=== PATIENT | male | born 1985 | race Hispanic/Latino ===

== ENCOUNTER 2021-06-22 00:02 | Emergency (ER) | payer OTHER, SELFPAY ==
[2021-06-22] VITALS (9 sets, daily range): BP systolic 113–149; BP diastolic 49–86; PULSE 53–85; RESP 14–22; TEMP 36.2; O2SAT 94–100
--- NOTE | ~2021-06-22 | CT_ITS ---
EXAMINATION: CT brain wo con DATE: 06/22/2021 03:13 INDICATION: Confusion. Weakness. TECHNIQUE: Computed tomography (CT) of the head was performed without intravenous contrast. The mA wa s adjusted according to patient size. Iterative reconstruction technique was employed. The dose-lengt h product was 605.33 mGy-cm. COMPARISON: None FINDINGS: There is no intracranial hemorrhage, acute infarction, or abnormal intracranial mass lesion . The ventricles are normal in size. The orbits are normal. There is mild mucosal thickening in the p aranasal sinuses. The mastoid air cells are normal. IMPRESSION: 1. Normal brain. Reviewed, dictated and finalized at location A. IMPRESSION: 1. Normal brain.
--- NOTE | 2021-06-22 00:07 | ECG_ITS ---
Measurements Intervals [place] Rate: 72 P: 61 IN: 162 QRS: 4 QRSD: 105 T: 53 QT: 345 QTc: 378 Interpretive Statements SINUS RHYTHM WITH SINUS ARRHYTHMIA NORMAL ECG NO PREVIOUS ECG AVAILABLE FOR COMPARISON Electronically Signed On 06-22-2021 11:19:25 CDT by Roberto Weston M.D.
--- NOTE | 2021-06-22 01:11 | ED.GENADULT ---
HPI - General Adult General Chief complaint: Unspecified <PRISCILLA Albert Last Filed: 06/22/21 04:01> Stated complaint: body pain, left arm pain <PRISCILLA Albert Last Filed: 06/22/21 04:01> Time Seen by Provider: 06/22/21 00:55 <PRISCILLA Albert Last Filed: 06/22/21 04:01> History of Present Illness HPI narrative: 35-year-old male previously healthy here for evaluation of weakness and pain in his left arm and bilateral lower extremities for the past 2 days. Patient states it feels like I worked out for 2 hours but denies physically exerting himself recently. The pain initially started in his left arm yesterday but then has gradually developed in his bilateral legs today. Reports difficulty with [id number] in his left hand today, which is why he presented to the emergency department. He does admit to drinking 4 glasses of wine tonight. Denies history of similar in the past. He was in his usual state of health until 2 days ago, and denies preceding illness. Denies urinary changes, fevers, cough, sick contacts, nausea, vomiting, chest pain, shortness of breath. No known tick exposure. <PRISCILLA Albert Last Filed: 06/22/21 04:01> Related Data Home medications: Home Medications Medication Instructions Recorded Confirmed albuterol sulfate INHALATION 06/22/21 cetirizine mg 06/22/21 fluticasone propionate INTRANASAL 06/22/21 naproxen 06/22/21 <PRISCILLA Albert Last Filed: 06/22/21 04:01> Allergies/adverse reactions: Allergies Allergy/AdvReac Type Severity Reaction Status Date / Time No Known Allergies Allergy Unverified 12/01/12 09:56 <PRISCILLA Albert Last Filed: 06/22/21 04:01> Review of Systems Review of Systems: Gen: Denies fevers Eyes: Denies eye pain or visual change ENT: Denies congestion Respiratory: Denies shortness of breath or cough CV: Denies chest pain or palpitations GI: Denies abdominal pain nausea, emesis or diarrhea : denies dark-colored urine, burning, urgency, frequency or hematuria Musculoskeletal: Reports muscle pain. Denies back pain Neuro: Reports weakness. denies numbness, tingling Skin: Denies rash Except as documented, all other systems reviewed and negative <Jennifer Lovett PA-C - Last Filed: 06/22/21 04:01> Exam Narrative: APPEARANCE: Anxious appearing. Head: normocephalic and atraumatic. EYES: PERRLA/EOMI, conjunctivae clear NOSE: No nasal drainage EARS: External ear normal in appearance THROAT: Oropharynx is clear. Mucous membranes are moist. NECK: Supple. No adenopathy, no masses. RESPIRATORY: Airway patent, respirations nonlabored. Clear to auscultation bilaterally, no rales, rhonchi, wheezing. CARDIOVASCULAR: 2+ radial pulses bilaterally. Regular rate and rhythm without murmurs, rubs, or gallops. ABDOMINAL: Normoactive bowel sounds. Soft, nontender, nondistended. No rebound tenderness or guarding. MUSCULOSKELETAL: Extremities are warm and well-perfused. Moves all extremities well. No edema. NEURO: 2+ DTRs in the patellas laterally. Patient has equal strength in upper extremities and lower extremities. Normal speech. Cranial nerves II through XII intact. Normal gait. SKIN: Skin is warm and dry. No rashes. PSYCHIATRIC: Flat affect <Jennifer Lovett PA-C - Last Filed: 06/22/21 04:01> Course SANITATION TECHNICIAN/PA Physician Supervision For this patient encounter, I reviewed the SANITATION TECHNICIAN or PA documentation, treatment plan, and medical decision making; and I had [id number] time with this patient. Patient CPK is mildly elevated, patient not in rhabdo, UA WNL. Patient does admit to working out to exertion. Patient denied any use of drugs but did test positive for cocaine. When confronted the patient admits to cocaine use recently. Patient was updated on the results of his work-up. Encouraged to have close follow-up with his primary care physician. <Ibrahima Simmons
--- NOTE | 2021-06-22 01:22 | PC.NURSE ---
Pt noted to have an episode lasting 5-10 seconds of unresponsiveness and muscle spasms in his shoulders. Pt became alert after 10 seconds but was noted to be confused. Pt heart rate on monitor during episode was in the high 40's. PA made aware. No new orders at this time. Pt now alert and oriented x 4
[2021-06-22 01:26] LABS: Basophils Absolute Auto 0.1 K/mm3 (0.0-0.1); Basophils Percent Auto 0.9 % (0.2-1.2); Eosinophils Absolute Auto 0.3 K/mm3 (0-0.3); Eosinophils Percent Auto 3.9 % (0-4.4); Hematocrit 45.7 % (42.0-52.0); Hemoglobin 15.5 g/dL (14.0-18.0); Immature Granulocyte Absolute 0.01 K/mm3 (0.00-0.031); Immature Granulocyte Percent A 0.1 % (0-0.5); Lymphocytes Percent Auto 45.2 % (18.3-44.2); Mean Corpuscular HGB Conc 33.9 g/dl (32-36); Mean Corpuscular Volume 88.4 fl (80-100); Mean Platelet Volume 11.6 fl (7.4-10.4); Monocytes Absolute Auto 0.7 K/mm3 (0.1-0.6); Monocytes Percent Auto 9.6 % (2.6-8.5); Neutrophils Absolute Auto 2.8 K/mm3 (1.3-6.7); Neutrophils Percent Auto 40.3 % (45.5-73.1); Platelet Count Result 247 k/mm3 (150-375); Red Blood Count 5.17 M/mm3 (4.6-6.20); Red Cell Distribution Width 12.5 % (11.5-14.5); White Blood Count 6.9 K/mm3 (4.5-10.0)
[2021-06-22 01:38] LABS: Alanine Aminotransferase 80 U/L (4-50); Albumin Level 4.9 g/dL (3.5-5.1); Alkaline Phosphatase 99 U/L (38-126); Anion Gap 10 mmol/L (8-16); Aspartate Amino Transferase 53 U/L (17-59); Bilirubin,Total 0.4 mg/dL (0.2-1.3); Blood Urea Nitrogen 17 mg/dL (9-20); Calcium 8.9 mg/dL (8.4-10.2); Carbon Dioxide 25 mmol/L (22-30); Chloride 104 mmol/L (98-107); Creatine Kinase 331 U/L (55-170); Estimated CRCL calculation 157 ml/min; Estimated Glomerular Filt Rate > 60; Glucose 100 mg/dL (65-110); Potassium 4.2 mmol/L (3.4-5.0); Sodium 139 mmol/L (137-145)
[2021-06-22] MEDS: SODIUM CHLORIDE 0.9% IV 1,000 ML 999 ML IV CONT (02:15)
[2021-06-22] MEDS: ACETAMINOPHEN 500 MG TABLET 1000 MG PO (03:25)
[2021-06-22 03:53] LABS: Appearance Urine Clear (Clear); Bilirubin Urine Negative (Negative); Blood Urine Negative (Negative); Color Urine Yellow (Yellow); Glucose Urine UA Negative (Negative); Ketones Urine Negative (Negative); Leukocyte Esterase Ur Negative LEU/UL (Negative); Nitrate Urine Negative (Negative); Protein Urine Negative (Negative); Specific Grav Ur 1.025 (1.001-1.035); Urobilinogen Urine 0.2 mg/dL (<2.0); pH Urine 6.5 (5.0-9.0)
[2021-06-22 03:56] LABS: Mucus Urine Rare /lpf; RBC Urine 0-2 /hpf (0-2); WBC Urine 0-3 /hpf
[2021-06-22 04:00] LABS: Influenza A QL RT-PCR Negative (Negative); Influenza B QL RT-PCR Negative (Negative)
[2021-06-22 04:02] LABS: Add Urine Microscopic? YES
[2021-06-22 04:08] LABS: Amphetamine Screen Urine Negative (Negative); Barbiturate Screen Urine Negative (Negative); Benzodiazepines Screen Urine Negative (Negative); Cannabinoid Screen Urine Negative (Negative); Cocaine Screen Urine Positive (Negative); Methadone Screen Urine Negative (Negative); Opiate Screen Urine Negative (Negative); Phencyclidine Screen Urine Negative (Negative)
== END 2021-06-22 05:34 | disposition home or self-care (01) ==
PROVIDERS: Physician Assistant; Emergency Provider Emergency Medicine; PCP Physician Assistant
DX: M79.10 Myalgia, unspecified site (principal)
CPT/HCPCS: 36415; 70450; 80053; 80307; 81001; 82550; 83735; 84100; 85025; 87502; 93005; 96360; 96361; 99284; A9270; J7030